=== PATIENT | male | born 1995 | race African-American/Black ===

== ENCOUNTER 2021-02-27 17:57 | Emergency (ER) | payer MEDICAID ==
[~2021-02-27] VITALS: Ht 154.9 cm; Wt 77.1 kg
[~2021-02-27 17:57] MED LIST: ADVAIR; ALBUPOW26; NASONEX; PREDPOW63; SINGULAIR
[2021-02-27 23:55] VITALS: BP 111/40
[2021-02-28] MEDS ORDERED: TETANUS-DIPTH-ACEL PERTUSSIS 0.5ML SYR Tdap IM ONE
== END 2021-02-28 01:40 | disposition home or self-care (01) ==
LOC: ER 17:57
DX: S61.411A Laceration without foreign body of right hand, initial encounter (principal); E66.9 Obesity, unspecified; Z68.32 Body mass index [BMI] 32.0-32.9, adult; W25.XXXA Contact with sharp glass, initial encounter; Y93.89 Activity, other specified; Y92.89 Other specified places as the place of occurrence of the external cause; Y99.8 Other external cause status
CPT/HCPCS: 12002; 73120; 90471; 90715